=== PATIENT | female | born 1955 | race Two or more races ===

== ENCOUNTER 2022-06-30 20:19 | Emergency (ER) | payer OTHER ==
[~2022-06-30] VITALS: Ht 167.6 cm; Wt 90.0 kg
[2022-06-30] MEDS ORDERED: IPRATROPIUM BROMIDE 0.5 MG/2.5 ML NEB SOLUTION NEB ONE (20:30)
[2022-06-30] MEDS ORDERED: ALBUTEROL SULFATE 2.5 MG/0.5 ML NEB SOLUTION NEB ONE (20:30)
[2022-06-30] MEDS ORDERED: PredniSONE 20 MG TABLET PO ONE (20:45)
[2022-06-30 20:49] LABS: COVID AG,FIA SOURCE NASAL SWAB
[2022-06-30 21:10] LABS: INFLUENZA TYPE A NEGATIVE FOR TYPE A (NEGATIVE); INFLUENZA TYPE B NEGATIVE FOR TYPE B (NEGATIVE)
[2022-06-30 23:34] VITALS: BP 147/77
[2022-06-30] MEDS ORDERED: ALBU8HFA IH (23:36)
[2022-06-30] MEDS ORDERED: PRED-554 PO (23:36)
== END 2022-07-01 00:03 | disposition home or self-care (01) ==
LOC: EMS 20:26
DX: J45.909 Unspecified asthma, uncomplicated (principal); Z20.822 Contact with and (suspected) exposure to COVID-19
CPT/HCPCS: 99284; 71045; 87426; 87420; 87804; 94640; J7512; J7613